=== PATIENT | male | born 1980 | race Caucasian/White ===

== ENCOUNTER 2021-01-29 11:38 | Emergency (ER) | payer SELFPAY ==
[2021-01-29 12:19] LABS: #Basophils 0.1 thou/uL (0.0-0.2); #Eosinphils 0.2 thou/uL (0.0-0.7); #Lymphocytes 2.4 thou/uL (1.20-3.40); #Monocytes 0.7 thou/uL (0.11-0.59); #Neutrophils 5.3 thou/uL (1.40-6.50); %Basophils 0.9 % (0.0-1.0); %Lymphocytes 28.3 % (21.0-51.0); %Monocytes 7.5 % (0.0-10.0); %Neutrophils 61.2 % (42.0-75.0); Hemoglobin 16.2 g/dL (14.0-18.0); Mean Corpuscular HGB CONC 35.8 g/dL (32.0-36.0); Mean Corpuscular Hemoglobin 34.4 pg (27.0-31.0); Mean Platelet Volume 9.1 fL (7.4-10.4); Platelet Count 173 thou/uL (130-400); RBC Distribution Width 11.6 % (11.5-14.5); Red Blood Cell (RBC) Count 4.73 mill/uL (4.70-6.10); White Blood Cell (WBC) Count 8.6 thou/uL (4.8-10.8)
[2021-01-29] MEDS ORDERED: Iopamidol 370 76% 100 ML VIAL ONE (12:23)
[2021-01-29 12:41] LABS: ALT (SGPT) 26 U/L (8-55); AST (SGOT) 19 U/L (5-34); Albumin 3.6 g/dL (3.5-5.0); Alkaline Phosphatase 90 U/L (40-110); Anion Gap 14 mmol/L (10-20); BUN (Urea Nitrogen) 14 mg/dL (8.9-20.6); Bilirubin, Total 0.5 mg/dL (0.2-1.2); Calc. Creatinine Clearance 0 mL/min (70-130); Calcium 9.1 mg/dL (7.8-10.44); Carbon Dioxide 25 mmol/L (22-29); Chloride 100 mmol/L (98-107); Globulin 3.2 g/dL (2.4-3.5); Glucose 399 mg/dL (70-105); Potassium 4.8 mmol/L (3.5-5.1); Protein, Total 6.8 g/dL (6.0-8.3); Sodium 134 mmol/L (136-145)
[2021-01-29 13:01] LABS: CKMB 2.3 ng/mL (0-6.6)
== END 2021-01-29 15:39 | disposition left against medical advice (07) ==
LOC: ERS 11:38
DX: R55 Syncope and collapse (principal); R07.9 Chest pain, unspecified; R74.8 Abnormal levels of other serum enzymes; I48.91 Unspecified atrial fibrillation; E11.9 Type 2 diabetes mellitus without complications; I10 Essential (primary) hypertension; C34.90 Malignant neoplasm of unspecified part of unspecified bronchus or lung; Z86.73 Personal history of transient ischemic attack (TIA), and cerebral infarction without residual deficits
CPT/HCPCS: 71045; 71275; 80053; 82553; 84484; 85025; 93005; Q9967

== ENCOUNTER 2021-02-15 06:17 | Emergency (ER) | payer SELFPAY ==
[2021-02-15] MEDS ORDERED: levETIRAcetam in NS 100 ML IVPB SCH (07:00)
[2021-02-15] MEDS ORDERED: levETIRAcetam in NS 100 ML ONE (07:10)
[2021-02-15 07:21] LABS: #Basophils 0.1 thou/uL (0.0-0.2); #Eosinphils 0.3 thou/uL (0.0-0.7); #Lymphocytes 2.6 thou/uL (1.20-3.40); #Monocytes 0.8 thou/uL (0.11-0.59); #Neutrophils 6.1 thou/uL (1.40-6.50); %Basophils 1.2 % (0.0-1.0); %Eosinophils 2.8 % (0.0-10.0); %Monocytes 8.5 % (0.0-10.0); %Neutrophils 61.5 % (42.0-75.0); Hemoglobin 17.1 g/dL (14.0-18.0); Mean Corpuscular HGB CONC 34.8 g/dL (32.0-36.0); Mean Corpuscular Hemoglobin 33.6 pg (27.0-31.0); Mean Corpuscular Volume 96.4 fL (78.0-98.0); Mean Platelet Volume 8.9 fL (7.4-10.4); Platelet Count 188 thou/uL (130-400); RBC Distribution Width 11.9 % (11.5-14.5); Red Blood Cell (RBC) Count 5.08 mill/uL (4.70-6.10); White Blood Cell (WBC) Count 9.9 thou/uL (4.8-10.8)
[2021-02-15 07:36] LABS: ALT (SGPT) 29 U/L (8-55); AST (SGOT) 24 U/L (5-34); Albumin 3.6 g/dL (3.5-5.0); Alkaline Phosphatase 96 U/L (40-110); Anion Gap 14 mmol/L (10-20); BUN (Urea Nitrogen) 18 mg/dL (8.9-20.6); Bilirubin, Total 0.5 mg/dL (0.2-1.2); Calc. Creatinine Clearance 0 mL/min (70-130); Calcium 9.3 mg/dL (7.8-10.44); Carbon Dioxide 27 mmol/L (22-29); Chloride 102 mmol/L (98-107); Glucose 327 mg/dL (70-105); Potassium 4.9 mmol/L (3.5-5.1); Protein, Total 7.6 g/dL (6.0-8.3); Sodium 138 mmol/L (136-145)
== END 2021-02-15 08:39 | disposition home or self-care (01) ==
LOC: ERS 06:17
DX: E11.65 Type 2 diabetes mellitus with hyperglycemia (principal); R56.9 Unspecified convulsions; Z59.00 Homelessness unspecified
CPT/HCPCS: 36415; 70450; 71045; 80053; 85025; 96365; J1953

== ENCOUNTER 2021-02-24 16:28 | Inpatient (IN) | payer SELFPAY ==
[2021-02-24] MEDS ORDERED: Diazepam 5 MG TAB ONE (17:32)
[2021-02-24 17:43] LABS: ALT (SGPT) 39 U/L (8-55); AST (SGOT) 31 U/L (5-34); Albumin 3.7 g/dL (3.5-5.0); Alcohol Less than 10 mg/dL (Less than 10); Alkaline Phosphatase 107 U/L (40-110); Anion Gap 16 mmol/L (10-20); BUN (Urea Nitrogen) 14 mg/dL (8.9-20.6); Bilirubin, Total 0.4 mg/dL (0.2-1.2); CK (CPK) 148 U/L (30-200); Calc. Creatinine Clearance 0 mL/min (70-130); Calcium 9.6 mg/dL (7.8-10.44); Carbon Dioxide 21 mmol/L (22-29); Chloride 103 mmol/L (98-107); Glucose 393 mg/dL (70-105); Potassium 4.5 mmol/L (3.5-5.1); Protein, Total 7.7 g/dL (6.0-8.3); Sodium 135 mmol/L (136-145)
[2021-02-24 17:46] LABS: Bilirubin Negative (Negative); Blood, Urine Negative (Negative); Clarity Clear (Clear); Glucose, Urine (Dipstick) Greater than 1000 mg/dL (Negative); Ketone, Urine Negative (Negative); Leukocyte Negative Leu/uL (Negative); Nitrite Negative (Negative); Protein, Urine (Dipstick) 10 mg/dL (Neg-Trace); Specific Gravity, Urine 1.031 (1.002-1.036); Urobilinogen Normal mg/dL (Less than 2); pH, Urine 5.5 (5.0-9.0)
[2021-02-24] MEDS ORDERED: Diltiazem 125 MG/25 ML ONE (17:53)
[2021-02-24 18:00] LABS: Acetaminophen Less than 6.0 mcg/mL (10.0-30.0); Alcohol Less than 10 mg/dL (Less than 10); Salicylate Less than 8.0 mg/dL (15.0-30.0)
[2021-02-24 18:05] LABS: Amphetamine Not Detected (NotDetected); Barbiturates Screen Not Detected (NotDetected); Benzodiazepine Screen Not Detected (NotDetected); Cocaine Metabolite Screen Not Detected (NotDetected); Methadone Not Detected (NotDetected); Methamphetamine Not Detected (NotDetected); Opiate Screen Not Detected (NotDetected); Oxycodone Screen Not Detected (NotDetected); Phencyclidine (PCP) Not Detected (NotDetected); THC/Cannabinoid Screen Not Detected (NotDetected); Tricyclic Screen Not Detected (NotDetected)
[2021-02-24 18:08] LABS: Actual Bicarbonate (HCO3v) 21 mEq/L (22-28); Analyzer IN Cardio ER; Base Excess -2.6 mEq/L (-2.0 to +3.0); Calcium, Ionized (venous) 1.15 mmol/L (1.16-1.32); Chloride (VBG) 102 mmol/L (98-106); Hemoglobin (Hb) 17.7 g/dL (13.2-17.3); Potassium (VBG) 4.42 mmol/L (3.70-5.30); Sodium 134.7 mmol/L (133-146); pH (venous) 7.41 (7.32-7.43)
[2021-02-24 18:28] LABS: Hemoglobin 16.6 g/dL (14.0-18.0); Mean Corpuscular HGB CONC 33.4 g/dL (32.0-36.0); Mean Corpuscular Hemoglobin 32.2 pg (27.0-31.0); Mean Corpuscular Volume 96.2 fL (78.0-98.0); Red Blood Cell (RBC) Count 5.18 mill/uL (4.70-6.10); White Blood Cell (WBC) Count 9.9 thou/uL (4.8-10.8)
[2021-02-24 18:29] LABS: Mean Platelet Volume 9.3 fL (7.4-10.4); Platelet Count 211 thou/uL (130-400); RBC Distribution Width 11.6 % (11.5-14.5)
[2021-02-24 18:31] LABS: %Eosinophils 0.9 % (0.0-10.0); %Lymphocytes 26.5 % (21.0-51.0); %Neutrophils 63.6 % (42.0-75.0)
[2021-02-24 18:36] LABS: Troponin I 0.031 ng/mL (< 0.028)
[2021-02-24 18:53] LABS: Platelet Morphology Comment Appears Adequate
[2021-02-24 18:54] LABS: #Eosinphils 0.9 thou/uL (0.0-0.7); #Lymphocytes 2.6 thou/uL (1.20-3.40); #Monocytes 0.8 thou/uL (0.11-0.59); #Neutrophils 6.3 thou/uL (1.40-6.50)
[2021-02-24 20:41] LABS: Magnesium 1.7 mg/dL (1.6-2.6)
[2021-02-24 21:00] LABS: Troponin I 0.039 ng/mL (< 0.028)
[2021-02-24] MEDS ORDERED: Aspirin Chewable 81 MG TAB ONE (21:08)
[2021-02-24 22:35] LABS: SARS-CoV-2 NAA Rapid Test Not Detected (NotDetected)
[2021-02-24 23:36] VITALS: BMI 37.9
[2021-02-25 00:16] LABS: Troponin I 0.046 ng/mL (< 0.028)
[2021-02-25] MEDS ORDERED: Ondansetron PF 4 MG/2 ML Vial IVP PRN (01:04)
[2021-02-25] MEDS ORDERED: Dextrose 50% Abboject 50 ML SYRINGE SLOW IVP PRN (01:04)
[2021-02-25] MEDS ORDERED: Acetaminophen 325 MG TAB PO PRN (01:04)
[2021-02-25] MEDS ORDERED: Bisacodyl 5 MG TAB PO PRN (01:04)
[2021-02-25] MEDS ORDERED: Dextrose 5% in Water 1,000 ML IV PRN (01:04)
[2021-02-25] MEDS ORDERED: HumaLOG 300 UNITS/3 ML VIAL SC PRN (01:06)
[2021-02-25] MEDS ORDERED: hydrALAZINE 20 MG/ML VIAL SLOW IVP PRN (01:07)
[2021-02-25] MEDS: Sodium Chloride 0.9% 1,000 ML IV SCH ×2 (02:19→21:35)
[2021-02-25] MEDS: HYDROcodone/Acetaminophen 5/325 mg Tablet PO PRN (03:19)
[2021-02-25] MEDS ORDERED: Lorazepam 2 MG/ML VIAL SLOW IVP PRN (03:50)
[2021-02-25 05:17] LABS: Hemoglobin 15.3 g/dL (14.0-18.0); Mean Corpuscular HGB CONC 34.6 g/dL (32.0-36.0); Mean Corpuscular Hemoglobin 33.6 pg (27.0-31.0); Mean Corpuscular Volume 97.3 fL (78.0-98.0); Mean Platelet Volume 8.7 fL (7.4-10.4); Platelet Count 172 thou/uL (130-400); RBC Distribution Width 11.6 % (11.5-14.5); Red Blood Cell (RBC) Count 4.55 mill/uL (4.70-6.10); White Blood Cell (WBC) Count 7.6 thou/uL (4.8-10.8)
[2021-02-25 05:24] LABS: ALT (SGPT) 31 U/L (8-55); AST (SGOT) 23 U/L (5-34); Albumin 3.2 g/dL (3.5-5.0); Alkaline Phosphatase 114 U/L (40-110); Anion Gap 13 mmol/L (10-20); BUN (Urea Nitrogen) 12 mg/dL (8.9-20.6); Bilirubin, Total 0.3 mg/dL (0.2-1.2); Calc. Creatinine Clearance 201 mL/min (70-130); Carbon Dioxide 23 mmol/L (22-29); Chloride 103 mmol/L (98-107); Globulin 3.5 g/dL (2.4-3.5); Glucose 336 mg/dL (70-105); Potassium 4.1 mmol/L (3.5-5.1); Protein, Total 6.7 g/dL (6.0-8.3); Sodium 135 mmol/L (136-145)
[2021-02-25] MEDS: HumaLOG 300 UNITS/3 ML VIAL SC PRN ×2 (05:44→11:46)
[2021-02-25 05:51] LABS: Band 1 % (5-11); Eosinophils 3 % (0-10); Lymphocytes 43 % (21-51); MDiff Complete? YES; Monocytes 2 % (0-10); Neutrophil 49 % (42-75)
[2021-02-25] MEDS: Apixaban 5 MG TAB PO SCH ×2 (08:41→20:43)
[2021-02-25] MEDS: metFORMIN 500 MG TAB PO SCH ×2 (08:41→17:49)
[2021-02-25] MEDS: Famotidine 20 MG TAB PO SCH ×2 (08:41→20:44)
[2021-02-25] MEDS: Metoprolol Tartrate 25 MG TAB PO SCH ×2 (08:42→20:44)
[2021-02-25] MEDS ORDERED: hydrOXYzine 25 MG TAB PO PRN (10:46)
[2021-02-25] MEDS ORDERED: Lorazepam 2 MG/ML VIAL SLOW IVP SCH (11:00)
[2021-02-25] MEDS: Lorazepam 2 MG/ML VIAL SLOW IVP PRN (14:22)
[2021-02-26] MEDS: Apixaban 5 MG TAB PO SCH ×2 (07:15→21:26)
[2021-02-26] MEDS: metFORMIN 500 MG TAB PO SCH ×2 (07:15→16:07)
[2021-02-26] MEDS: Metoprolol Tartrate 25 MG TAB PO SCH ×2 (07:16→21:25)
[2021-02-26] MEDS: Famotidine 20 MG TAB PO SCH ×2 (07:16→21:25)
[2021-02-26 09:33] LABS: #Basophils 0.1 thou/uL (0.0-0.2); #Eosinphils 0.3 thou/uL (0.0-0.7); #Lymphocytes 2.9 thou/uL (1.20-3.40); #Monocytes 0.7 thou/uL (0.11-0.59); #Neutrophils 5.8 thou/uL (1.40-6.50); %Eosinophils 3.5 % (0.0-10.0); %Lymphocytes 29.5 % (21.0-51.0); %Monocytes 6.7 % (0.0-10.0); %Neutrophils 59.3 % (42.0-75.0); Hemoglobin 16.2 g/dL (14.0-18.0); Mean Corpuscular HGB CONC 35.2 g/dL (32.0-36.0); Mean Corpuscular Hemoglobin 34.3 pg (27.0-31.0); Mean Corpuscular Volume 97.4 fL (78.0-98.0); Mean Platelet Volume 9.7 fL (7.4-10.4); Platelet Count 212 thou/uL (130-400); RBC Distribution Width 11.8 % (11.5-14.5); Red Blood Cell (RBC) Count 4.73 mill/uL (4.70-6.10); White Blood Cell (WBC) Count 9.8 thou/uL (4.8-10.8)
[2021-02-26 09:53] LABS: Anion Gap 13 mmol/L (10-20); BUN (Urea Nitrogen) 12 mg/dL (8.9-20.6); Calc. Creatinine Clearance 226 mL/min (70-130); Calcium 8.7 mg/dL (7.8-10.44); Carbon Dioxide 20 mmol/L (22-29); Chloride 106 mmol/L (98-107); Glucose 196 mg/dL (70-105); Potassium 4.4 mmol/L (3.5-5.1); Sodium 135 mmol/L (136-145)
[2021-02-26] MEDS: HumaLOG 300 UNITS/3 ML VIAL SC PRN (11:34)
[2021-02-26] MEDS: Sodium Chloride 0.9% 1,000 ML IV SCH ×2 (16:07→21:31)
[2021-02-27 04:47] LABS: #Basophils 0.1 thou/uL (0.0-0.2); #Eosinphils 0.3 thou/uL (0.0-0.7); #Lymphocytes 3.3 thou/uL (1.20-3.40); #Monocytes 0.8 thou/uL (0.11-0.59); #Neutrophils 4.5 thou/uL (1.40-6.50); %Basophils 0.8 % (0.0-1.0); %Eosinophils 3.6 % (0.0-10.0); %Lymphocytes 36.9 % (21.0-51.0); %Monocytes 8.5 % (0.0-10.0); %Neutrophils 50.2 % (42.0-75.0); Hemoglobin 15.6 g/dL (14.0-18.0); Mean Corpuscular HGB CONC 34.9 g/dL (32.0-36.0); Mean Corpuscular Hemoglobin 33.7 pg (27.0-31.0); Mean Corpuscular Volume 96.5 fL (78.0-98.0); Mean Platelet Volume 8.9 fL (7.4-10.4); Platelet Count 177 thou/uL (130-400); RBC Distribution Width 11.5 % (11.5-14.5); Red Blood Cell (RBC) Count 4.62 mill/uL (4.70-6.10)
[2021-02-27 05:01] LABS: Anion Gap 14 mmol/L (10-20); BUN (Urea Nitrogen) 11 mg/dL (8.9-20.6); Calc. Creatinine Clearance 223 mL/min (70-130); Calcium 8.9 mg/dL (7.8-10.44); Carbon Dioxide 24 mmol/L (22-29); Chloride 104 mmol/L (98-107); Glucose 185 mg/dL (70-105); Potassium 4.1 mmol/L (3.5-5.1); Sodium 138 mmol/L (136-145)
[2021-02-27] MEDS: HumaLOG 300 UNITS/3 ML VIAL SC PRN ×2 (06:31→12:28)
[2021-02-27] MEDS: Famotidine 20 MG TAB PO SCH ×2 (09:14→20:10)
[2021-02-27] MEDS: Metoprolol Tartrate 25 MG TAB PO SCH ×2 (09:14→20:09)
[2021-02-27] MEDS: Apixaban 5 MG TAB PO SCH ×2 (09:14→20:10)
[2021-02-27] MEDS: metFORMIN 500 MG TAB PO SCH ×2 (09:14→16:39)
[2021-02-27] MEDS: Sodium Chloride 0.9% 1,000 ML IV SCH (16:39)
[2021-02-28 05:18] LABS: #Basophils 0.1 thou/uL (0.0-0.2); #Eosinphils 0.4 thou/uL (0.0-0.7); #Lymphocytes 3.9 thou/uL (1.20-3.40); #Monocytes 0.9 thou/uL (0.11-0.59); #Neutrophils 5.6 thou/uL (1.40-6.50); %Basophils 0.9 % (0.0-1.0); %Eosinophils 3.9 % (0.0-10.0); %Lymphocytes 35.7 % (21.0-51.0); %Monocytes 8.1 % (0.0-10.0); %Neutrophils 51.4 % (42.0-75.0); Mean Corpuscular HGB CONC 34.5 g/dL (32.0-36.0); Mean Corpuscular Volume 95.5 fL (78.0-98.0); Mean Platelet Volume 8.8 fL (7.4-10.4); Platelet Count 182 thou/uL (130-400); RBC Distribution Width 11.4 % (11.5-14.5); Red Blood Cell (RBC) Count 4.86 mill/uL (4.70-6.10); White Blood Cell (WBC) Count 10.9 thou/uL (4.8-10.8)
[2021-02-28 05:37] LABS: Anion Gap 13 mmol/L (10-20); BUN (Urea Nitrogen) 14 mg/dL (8.9-20.6); Calc. Creatinine Clearance 223 mL/min (70-130); Calcium 9.2 mg/dL (7.8-10.44); Carbon Dioxide 24 mmol/L (22-29); Chloride 103 mmol/L (98-107); Glucose 139 mg/dL (70-105); Potassium 4.1 mmol/L (3.5-5.1); Sodium 136 mmol/L (136-145)
[2021-02-28] MEDS: metFORMIN 500 MG TAB PO SCH ×2 (08:09→17:11)
[2021-02-28] MEDS: Apixaban 5 MG TAB PO SCH ×2 (08:09→20:40)
[2021-02-28] MEDS: Famotidine 20 MG TAB PO SCH ×2 (08:10→20:40)
[2021-02-28] MEDS: Metoprolol Tartrate 25 MG TAB PO SCH ×2 (08:10→20:40)
[2021-02-28] MEDS: HYDROcodone/Acetaminophen 5/325 mg Tablet PO PRN (15:56)
[2021-02-28] MEDS: Lorazepam 2 MG/ML VIAL SLOW IVP PRN (15:58)
[2021-03-01 04:46] LABS: #Basophils 0.1 thou/uL (0.0-0.2); #Eosinphils 0.4 thou/uL (0.0-0.7); #Lymphocytes 3.3 thou/uL (1.20-3.40); #Monocytes 0.8 thou/uL (0.11-0.59); #Neutrophils 5.5 thou/uL (1.40-6.50); %Basophils 0.7 % (0.0-1.0); %Eosinophils 4.1 % (0.0-10.0); %Lymphocytes 32.9 % (21.0-51.0); %Monocytes 7.8 % (0.0-10.0); %Neutrophils 54.5 % (42.0-75.0); Hemoglobin 15.7 g/dL (14.0-18.0); Mean Corpuscular HGB CONC 34.3 g/dL (32.0-36.0); Mean Corpuscular Hemoglobin 33.4 pg (27.0-31.0); Mean Corpuscular Volume 97.5 fL (78.0-98.0); Mean Platelet Volume 8.9 fL (7.4-10.4); Platelet Count 178 thou/uL (130-400); RBC Distribution Width 11.7 % (11.5-14.5); Red Blood Cell (RBC) Count 4.71 mill/uL (4.70-6.10); White Blood Cell (WBC) Count 10.1 thou/uL (4.8-10.8)
[2021-03-01 05:11] LABS: Anion Gap 12 mmol/L (10-20); BUN (Urea Nitrogen) 14 mg/dL (8.9-20.6); Calc. Creatinine Clearance 187 mL/min (70-130); Calcium 8.8 mg/dL (7.8-10.44); Carbon Dioxide 27 mmol/L (22-29); Chloride 102 mmol/L (98-107); Glucose 178 mg/dL (70-105); Potassium 4.2 mmol/L (3.5-5.1); Sodium 137 mmol/L (136-145)
[2021-03-01] MEDS: Sodium Chloride 0.9% 1,000 ML IV SCH ×2 (05:53→15:35)
[2021-03-01] MEDS: metFORMIN 500 MG TAB PO SCH ×2 (10:33→16:40)
[2021-03-01] MEDS: Apixaban 5 MG TAB PO SCH ×2 (10:33→20:30)
[2021-03-01] MEDS: Metoprolol Tartrate 25 MG TAB PO SCH ×2 (10:33→20:32)
[2021-03-01] MEDS: Famotidine 20 MG TAB PO SCH ×2 (10:33→20:30)
[2021-03-02] MEDS: Metoprolol Tartrate 25 MG TAB PO SCH ×2 (08:33→20:32)
[2021-03-02] MEDS: Apixaban 5 MG TAB PO SCH ×2 (08:39→20:32)
[2021-03-02] MEDS: Famotidine 20 MG TAB PO SCH ×2 (08:39→20:32)
[2021-03-02] MEDS: metFORMIN 500 MG TAB PO SCH ×2 (08:39→16:30)
[2021-03-02] MEDS: Sodium Chloride 0.9% 1,000 ML IV SCH (20:36)
[2021-03-03] MEDS: Lorazepam 2 MG/ML VIAL SLOW IVP PRN (01:49)
[2021-03-03] MEDS: Apixaban 5 MG TAB PO SCH ×2 (08:45→20:13)
[2021-03-03] MEDS: metFORMIN 500 MG TAB PO SCH ×2 (08:45→17:09)
[2021-03-03] MEDS: Famotidine 20 MG TAB PO SCH ×2 (08:45→20:13)
[2021-03-03] MEDS: Metoprolol Tartrate 25 MG TAB PO SCH ×2 (08:46→20:13)
[2021-03-03] MEDS: Sodium Chloride 0.9% 1,000 ML IV SCH (15:32)
[2021-03-04] MEDS: Lorazepam 2 MG/ML VIAL SLOW IVP PRN (01:39)
[2021-03-04 09:03] VITALS: BP 103/57; TEMP 98
[2021-03-04] MEDS: metFORMIN 500 MG TAB PO SCH ×2 (09:05→16:53)
[2021-03-04] MEDS: Famotidine 20 MG TAB PO SCH (09:05)
[2021-03-04] MEDS: Apixaban 5 MG TAB PO SCH (09:05)
[2021-03-04] MEDS: Metoprolol Tartrate 25 MG TAB PO SCH (09:06)
[2021-03-04] MEDS: Sodium Chloride 0.9% 1,000 ML IV SCH (09:49)
[2021-03-04 15:34] LABS: SARS-CoV-2 NAA Rapid Test Not Detected (NotDetected)
[2021-03-04] MEDS: HumaLOG 300 UNITS/3 ML VIAL SC PRN (16:52)
== END 2021-03-04 18:29 | disposition home or self-care (01) | DRG 885 ==
LOC: ERS 16:28 → ERHOLD 20:14 → 2NO 23:28 → T4-A 03-01 14:58
PROVIDERS: ADMIT Internal Medicine; ATTEND Hospitalist
DX: F25.1 Schizoaffective disorder, depressive type (principal); R45.851 Suicidal ideations; Z20.822 Contact with and (suspected) exposure to COVID-19; I48.20 Chronic atrial fibrillation, unspecified; E66.9 Obesity, unspecified; E11.65 Type 2 diabetes mellitus with hyperglycemia; E11.9 Type 2 diabetes mellitus without complications; Z59.00 Homelessness unspecified; Z68.37 Body mass index [BMI] 37.0-37.9, adult; Z91.14 Patient's other noncompliance with medication regimen; Z80.1 Family history of malignant neoplasm of trachea, bronchus and lung; Z86.73 Personal history of transient ischemic attack (TIA), and cerebral infarction without residual deficits; Z85.118 Personal history of other malignant neoplasm of bronchus and lung; Z79.899 Other long term (current) drug therapy
CPT/HCPCS: 36415; 36416; 70496; 70498; 71045; 80048; 80053; 80306; 80307; 81003; 82010; 82550; 82805; 83036; 83735; 84146; 84443; 84484; 85007; 85025; 85027; 93005; 95712; 95819; 95957; 96365; 96366; 96376; J1815; J2060; J7050; U0002

== ENCOUNTER 2021-03-23 17:08 | Emergency (ER) | payer SELFPAY ==
[2021-03-23 18:22] LABS: #Basophils 0.1 thou/uL (0.0-0.2); #Eosinphils 0.1 thou/uL (0.0-0.7); #Lymphocytes 1.7 thou/uL (1.20-3.40); #Monocytes 0.8 thou/uL (0.11-0.59); #Neutrophils 6.6 thou/uL (1.40-6.50); %Basophils 1.1 % (0.0-1.0); %Eosinophils 0.6 % (0.0-10.0); %Monocytes 9.1 % (0.0-10.0); %Neutrophils 71.2 % (42.0-75.0); Hemoglobin 17.8 g/dL (14.0-18.0); Mean Corpuscular Hemoglobin 33.5 pg (27.0-31.0); Mean Corpuscular Volume 95.5 fL (78.0-98.0); Mean Platelet Volume 9.2 fL (7.4-10.4); Platelet Count 140 thou/uL (130-400); RBC Distribution Width 11.3 % (11.5-14.5); Red Blood Cell (RBC) Count 5.31 mill/uL (4.70-6.10); White Blood Cell (WBC) Count 9.3 thou/uL (4.8-10.8)
[2021-03-23 18:40] LABS: Acetaminophen Less than 6.0 mcg/mL (10.0-30.0); Alcohol Less than 10 mg/dL (Less than 10); Salicylate Less than 8.0 mg/dL (15.0-30.0)
[2021-03-23 18:41] LABS: ALT (SGPT) 26 U/L (8-55); AST (SGOT) 23 U/L (5-34); Alkaline Phosphatase 71 U/L (40-110); Anion Gap 17 mmol/L (10-20); BUN (Urea Nitrogen) 13 mg/dL (8.9-20.6); Bilirubin, Total 0.6 mg/dL (0.2-1.2); CK (CPK) 101 U/L (30-200); Calc. Creatinine Clearance 0 mL/min (70-130); Calcium 9.4 mg/dL (7.8-10.44); Carbon Dioxide 21 mmol/L (22-29); Chloride 104 mmol/L (98-107); Globulin 3.8 g/dL (2.4-3.5); Glucose 143 mg/dL (70-105); Potassium 3.8 mmol/L (3.5-5.1); Protein, Total 7.8 g/dL (6.0-8.3); Sodium 138 mmol/L (136-145)
[2021-03-23 22:13] LABS: Bacteria/HPF None Seen HPF (None Seen); Bilirubin 1+ (Negative); Blood, Urine Negative (Negative); Clarity Turbid (Clear); Glucose, Urine (Dipstick) Normal (Negative); Ketone, Urine Greater than 150 mg/dL (Negative); Leukocyte Negative Leu/uL (Negative); Mucous/LPF Rare LPF (<2+); Nitrite Negative (Negative); Protein, Urine (Dipstick) 50 mg/dL (Neg-Trace); Specific Gravity, Urine 1.033 (1.002-1.036); Urobilinogen 3 mg/dL (Less than 2)
[2021-03-23 22:16] LABS: Sperm/HPF 1+ HPF (None Seen)
[2021-03-23 22:18] LABS: Amphetamine Not Detected (NotDetected); Barbiturates Screen Not Detected (NotDetected); Benzodiazepine Screen Detected (NotDetected); Cocaine Metabolite Screen Not Detected (NotDetected); Methadone Not Detected (NotDetected); Methamphetamine Not Detected (NotDetected); Opiate Screen Not Detected (NotDetected); Oxycodone Screen Not Detected (NotDetected); Phencyclidine (PCP) Not Detected (NotDetected); THC/Cannabinoid Screen Not Detected (NotDetected); Tricyclic Screen Not Detected (NotDetected)
== END 2021-03-24 10:33 ==
LOC: ERS 17:08
DX: R45.851 Suicidal ideations (principal); I48.91 Unspecified atrial fibrillation; Z86.73 Personal history of transient ischemic attack (TIA), and cerebral infarction without residual deficits
CPT/HCPCS: 36415; 80053; 80306; 80307; 81003; 81015; 82550; 84443; 85025; 99285